=== PATIENT | male | born 1990 | race Two or more races ===

== ENCOUNTER 2024-11-13 11:02 | Emergency (ER) | payer BC, SELFPAY ==
[2024-11-13 11:03] VITALS: BMI 38.0
--- NOTE | 2024-11-13 11:07 | EKG_ITS ---
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
[2024-11-13 11:15] VITALS: BP 152/99; PULSE 92; RESP 18; TEMP 36.8; O2SAT 95
--- NOTE | 2024-11-13 11:25 | XR_ITS ---
Examination: PA lateral chest 2 views Technique: Upright PA lateral chest 2 views Exam date and time: November 13, 2024 1141 hrs. Comparison January 27, 2022 Indications: Cardiac palpitations today. Findings: Minimal prominence of ventricle Mild vascular congestion. No lobar pneumonia or pulmonary edema. The osseous structures are intact. Impression: Mild vascular congestion.
--- NOTE | 2024-11-13 11:25 | PD.EDRME ---
Rapid Medical Screening Exam RME Arrival date/time: 11/13/24 11:02 34-year-old male with no significant medical problems presents emergency department today complains of palpitations today Chief Complaint: Chest Pain Time Seen by Provider: 11/13/24 11:22 Vital signs: Vital Signs Temperature 98.3 F 11/13/24 11:15 Pulse Rate 92 11/13/24 11:15 Respiratory Rate 18 11/13/24 11:15 Blood Pressure 152/99 H 11/13/24 11:15 Pulse Oximetry (%) 95 11/13/24 11:15 Oxygen Delivery Method Room Air 11/13/24 11:15
[2024-11-13 11:51] LABS: Basophils % (Auto) 0 % (0-2.5); Eosinophils # (Auto) 0.3 Thou/mm3 (0.0-0.5); Eosinophils % (Auto) 2 % (0-10); Hematocrit 43.7 % (41.0-53.0); Hemoglobin 14.9 g/dL (13.5-16.0); Immature Granulocytes % (Auto) 0 % (0-0); Immature Granulocytes Auto 0.04 Thou/mm3 (0.00-0.00); Lymphocytes # (Auto) 2.5 Thou/mm3 (1.0-4.8); Lymphocytes % (Auto) 21 % (10-50); Mean Corpuscular HGB Conc 34.1 g/dl (31.0-37.0); Mean Corpuscular Hemoglobin 30.1 pg (25.0-35.0); Mean Corpuscular Volume 88 fL (80-100); Monocytes # (Auto) 0.8 Thou/mm3 (0.0-0.8); Monocytes % (Auto) 7 % (0-12); Neutrophils # (Auto) 8.1 Thou/mm3 (1.8-7.7); Neutrophils % (Auto) 69 % (37-80); Nucleated Red Blood Cell % 0 /100 WBC (0); Platelet Count 263 Thou/mm3 (140-440); RDW Standard Deviation 42.3 fL (35.1-43.9); Red Blood Count 4.95 Miln/mm3 (4.50-5.90); White Blood Count 11.8 Thou/mm3 (3.8-10.6)
[2024-11-13 12:06] LABS: Alanine Aminotransferase 47 U/L (10-49); Albumin, Serum 4.6 gm/dL (3.5-5.0); Albumin/Globulin Ratio 1.6 (1.2-2.2); Alkaline Phosphatase 77 U/L (46-116); Anion Gap 5 (7-16); Aspartate Amino Transferase 35 U/L (0-34); BUN/Creatinine Ratio 15 Ratio (12-20); Bilirubin,Total 0.4 mg/dL (0.3-1.2); Blood Urea Nitrogen 16 mg/dL (9-23); Calcium 9.8 mg/dL (8.3-10.6); Calcium (Corrected) 9.8 mg/dL (8.5-10.1); Carbon Dioxide 28.7 mMol/L (20.0-31.0); Chloride 105 mMol/L (98-107); Creatinine (Component) 1.1 mg/dL (0.6-1.3); Estimated Creatinine Clearance 113.5 mL/min (>60); Globulin 2.9 gm/dL (2.3-3.5); Glucose 101 mg/dL (74-106); Osmolality,Calculated 278 (275-295); Potassium 5.1 mMol/L (3.4-5.1); Sodium 139 mMol/L (136-145); Total Protein 7.5 gm/dL (5.7-8.2); Troponin I < 0.002 ng/mL (0.0-0.045); eGFR > 60 See Note
--- NOTE | 2024-11-13 12:37 | PD.EDADULT ---
ED General RME/HPI General Chief complaint: Chest Pain Stated complaint: CHEST PAIN, L) JUGULAR THROBBING, L) EYE TWITCHING Time Seen by Provider: 11/13/24 11:22 Arrival date/time: 11/13/24 11:02 CC: The palpitations. Onset this morning, continues to feel pulsing in his left neck. Patient denies chest pain shortness of breath difficulty breathing headache blurred vision or seeing spots. 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 Patient is awake alert oriented not in any acute distress. RME / HPI RME / HPI narrative: 11/13/24 11:02 34-year-old male with no significant medical problems presents emergency department today complains of palpitations today Related Data Home Medications ?Medication ?Instructions ?Recorded ?Confirmed acetaminophen 500 mg capsule See Rx Instructions .Route .COMPLEX 03/25/21 03/25/21 albuterol sulfate 90 mcg/actuation 2 puff inhalation Q4H 03/25/21 03/25/21 aerosol inhaler ibuprofen 600 mg tablet (IBU) See Rx Instructions .Route 03/25/21 03/25/21 .COMPLEX PRN Fever Previous Rx's ?Medication ?Instructions ?Recorded dexamethasone 6 mg tablet 6 mg PO QDAY #2 tabs 03/27/21 hydrocodone 5 mg-acetaminophen 325 1 tab PO BID PRN pain #10 tabs 01/27/22 mg tablet ibuprofen 800 mg tablet 800 mg PO TID PRN pain #30 tabs 01/27/22 cyclobenzaprine 5 mg tablet 5 mg PO Q8H PRN muscle spasm #7 03/11/24 tabs ibuprofen 800 mg tablet (IBU) 800 mg PO Q8H #20 tabs 03/11/24 Allergies Allergy/AdvReac Type Severity Reaction Status Date / Time No Known Allergies Allergy Verified 11/13/24 11:05 Review of Systems Review of Systems Narrative Review of Systems: GEN: No fever, no chills, no weight loss EYES: No discharge, no visual changes, no pain HEENT: No ear pain, no congestion, no sore throat PULM: No shortness of breath, no cough, no congestion CV: No chest pain, no dyspnea on exertion, + palpitations GI: No nausea, no vomiting, no diarrhea, no pain, no constipation : No frequency, no urgency, no dysuria MUSC/SKEL: No joint pain, no back pain SKIN: No rash PSYCH: No hallucinations, no depression HEME/LYMPH: No easy bleeding or bruising tendencies NEURO: No weakness, no headache Past Medical History Past Medical History NEUROLOGIC: Negative Neurological Disorders CARDIAC: Negative Cardiac Disorders or Congestive Heart Failure RESPIRATORY: Negative Chronic Obstructive Pulmonary Disease (COPD) GASTROINTESTINAL: Negative Gastrointestinal Disorders GENITOURINARY: Negative Renal Disease MUSCULOSKELETAL: Negative Musculoskeletal Disorders ENDOCRINE: Negative Diabetes Mellitus Type 1 or Diabetes Mellitus Type 2 Social History SMOKING STATUS: Former smoker SUBSTANCE USE: does not use ED Exam Narrative Physical exam: [General: Obese not in any acute distress Head normocephalic HEENT: Within acceptable limits Neck is supple nontender Chest equal chest rise nontender to palpation Respiratory: Clear to auscultation no wheezes crackles or rubs CV: Rate rhythm is regular no murmurs rubs or clicks Abdomen is distended secondary to body habitus soft nontender no masses positive bowel sounds all 4 quadrants Back: No CVA tenderness no spinous process tenderness from cervical spine thoracic and lumbar spine Skin: Intact no petechiae rash induration ulceration or crepitus Extremities: Moving all extremity against resistance cap refill less than 2 seconds neurosensory intact Neuro: Awake alert oriented x3 Glascow coma 15 no focal deficits] Course Quality Measures none Orders Category Date Time Status EKG (ED ONLY) *Do not use* NOW Care 11/13/24 11:07 Completed EKG (ED Only) Stat Exams 11/13/24 11:07 Draft XR chest 2V Stat Exams 11/13/24 11:25 Completed CBC Stat Lab 11/13/24 11:32 Completed Comprehensive Metabolic Panel Stat Lab 11/13/24 11:32 Completed Troponin I Stat Lab 11/13/24 11:32 Completed Vital Signs Vital signs: Vital Signs Temperature 98.3 F 11/13/24 11:15 Pulse Rate 92 11/13/24 11:15 Respiratory Rate 18 11/13/24 11:15 Blood Pressure 152/99 H 11/13/24 11:15 Pulse Oximetry (%) 95 11/13/24 11:15 Oxygen Delivery Method Room Air 11/13/24 11:15 Discharge Plan Plan Patient Disposition: HOME (Self Care) Patient condition on transfer: Stable Prescriptions/Referrals Prescriptions/Med Rec: No Action ibuprofen [IBU] 600 mg Tablet See Rx Instructions .ROUTE .COMPLEX PRN (Reason: Fever) Patient Comments: pt unsure of strength Rx Instructions: no rx present. Pt unsure of dose albuterol sulfate 90 mcg/actuation HFA aerosol inhaler 2 puff INHALATION Q4H Patient Comments: INHALE 2 PUFFS BY MOUTH EVERY 6 TO 8 HOURS acetaminophen 500 mg Capsule See Rx Instructions .ROUTE .COMPLEX Rx Instructions: Pt unsure of dose. dexamethasone 6 mg Tablet 6 mg PO QDAY Qty: 2 0RF ibuprofen 800 mg tablet 800 mg PO TID PRN (Reason: pain) Qty: 30 0RF hydrocodone-acetaminophen 5-325 mg tablet 1 tab PO BID MDD 10 PRN (Reason: pain) Qty: 10 0RF ibuprofen [IBU] 800 mg tablet 800 mg PO Q8H Qty: 20 0RF cyclobenzaprine 5 mg tablet 5 mg PO Q8H PRN (Reason: muscle spasm) Qty: 7 0RF Referrals: Rivera Franco MD [Primary Care Provider] - In 1 week Problem List Clinical Impression: Palpitations Patient/Caregiver Discharge Instructions Education Materials: ED Palpitations Print Language: Syriac Stand Alone Forms: [employer] Award Info., Work/School Release, Patient Portal Info Letter PA/EQUAL OPPORTUNITY ASSISTANT Supervising Physician PA/EQUAL OPPORTUNITY ASSISTANT Supervising Physician: Roberto Benson ENP MDM Patient Acuity Low Acuity (complete MDM as needed) Clinical Information Provided by: none Medical Records reviewed [facility] Meds/Rx considered, not ordered None Labs/Rad/Tests considered, not ordered Describe: CBC shows mild leukocytosis 11.8 no anemia thrombocytopenia CMP shows no significant electrolyte imbalances renal impairment transaminitis or T. bili elevation Troponin is negative Chest x-ray as interpreted by me read by radiology shows mild vascular congestion. EKG performed at 1109 shows a ventricular rate of 81 NE interval 155 QRS of 890 QTc of 378 this is normal sinus rhythm Chronic Illness/Social Conditions Explain: Patient is under high stress secondary to patient's advanced and being in nursing school. EKG EKG Interpretation(s): See above Labs Labs: Interpreted by me Lab(s) Interpretation(s): No acute finding requires emergent or immediate intervention Imaging Imaging interpretation: Interpreted by me Imaging Interpretation(s): Mild vascular injection no other acute finding requires emergent or immediate intervention Medication Administration(s) None Diagnosis Differential Diagnosis ED Complaint MDM: ACS OR pneumonia
[2024-11-13 13:04] VITALS: BP 135/81; PULSE 87; RESP 18; O2SAT 100
== END 2024-11-13 13:05 | disposition home or self-care (01) ==
PROVIDERS: Nurse Practitioner Primary Care; Emergency Provider Family Medicine; PCP Internal Medicine
DX: R00.2 Palpitations (principal)
CPT/HCPCS: 36415; 71046; 80053; 84484; 85025; 93005; 99283